=== PATIENT | male | born 1985 | race Caucasian/White ===

== ENCOUNTER → 2021-05-06 | Outpatient (CLI) | payer OTHER | LOC: EDSEX 08:42 → HYPER 08:42 | PROVIDERS: ATTEND Emergency Medicine | DX: L89.616 Pressure-induced deep tissue damage of right heel (principal); S86.011A Strain of right Achilles tendon, initial encounter; R60.0 Localized edema; E66.9 Obesity, unspecified; M25.69 Stiffness of other specified joint, not elsewhere classified; Z68.27 Body mass index [BMI] 27.0-27.9, adult; X58.XXXA Exposure to other specified factors, initial encounter; Y93.89 Activity, other specified; Y92.89 Other specified places as the place of occurrence of the external cause; Y99.8 Other external cause status ==

== ENCOUNTER → 2021-05-13 | Outpatient (CLI) | payer OTHER | LOC: HYPER 08:54 | PROVIDERS: ATTEND Emergency Medicine | DX: L89.616 Pressure-induced deep tissue damage of right heel (principal); L97.412 Non-pressure chronic ulcer of right heel and midfoot with fat layer exposed; S86.011D Strain of right Achilles tendon, subsequent encounter; R60.0 Localized edema; E66.9 Obesity, unspecified; M25.69 Stiffness of other specified joint, not elsewhere classified; Z68.27 Body mass index [BMI] 27.0-27.9, adult; X58.XXXD Exposure to other specified factors, subsequent encounter ==

== ENCOUNTER → 2021-05-23 | Outpatient (CLI) | payer OTHER | LOC: HYPER 08:51 | PROVIDERS: ATTEND Emergency Medicine | DX: L89.616 Pressure-induced deep tissue damage of right heel (principal); S86.011D Strain of right Achilles tendon, subsequent encounter; R60.0 Localized edema; E66.9 Obesity, unspecified; M25.69 Stiffness of other specified joint, not elsewhere classified; Z68.27 Body mass index [BMI] 27.0-27.9, adult; X58.XXXD Exposure to other specified factors, subsequent encounter ==

== ENCOUNTER → 2021-06-06 | Outpatient (CLI) | payer OTHER | LOC: HYPER 08:53 | PROVIDERS: ATTEND Emergency Medicine | DX: L89.616 Pressure-induced deep tissue damage of right heel (principal); S86.011D Strain of right Achilles tendon, subsequent encounter; R60.0 Localized edema; E66.9 Obesity, unspecified; M25.69 Stiffness of other specified joint, not elsewhere classified; Z68.27 Body mass index [BMI] 27.0-27.9, adult; X58.XXXD Exposure to other specified factors, subsequent encounter ==